=== PATIENT | female | born 1955 | race Caucasian/White ===

== ENCOUNTER 2017-02-16 14:09 | Emergency (ER) | payer OTHER ==
[~2017-02-16] VITALS: Ht 154.9 cm; Wt 59.0 kg
[2017-02-16] MEDS ORDERED: BACTRIM DS TAB1 EACH PO (14:35)
[2017-02-16] MEDS ORDERED: PROBIOTIC1 EAC1 PO (14:35)
[2017-02-16 14:48] VITALS: BP 106/66
== END 2017-02-16 14:49 | disposition home or self-care (01) ==
LOC: ER 14:09
DX: L03.011 Cellulitis of right finger (principal)

== ENCOUNTER 2017-06-08 11:07 | Emergency (ER) | payer OTHER ==
[~2017-06-08] VITALS: Ht 152.4 cm; Wt 56.7 kg
[~2017-06-08 11:07] MED LIST: BACTRIM DS TAB1 EACH PO; PROBIOTIC1 EAC1 PO
[2017-06-08 12:22] LABS: HEMATOCRIT 43.3 % (37.0-47.0)
[2017-06-08 12:22] LABS: URINE BILIRUBIN NEGATIVE (Negative); URINE BLOOD TRACE (Negative); URINE CLARITY CLEAR; URINE COLOR YELLOW; URINE GLUCOSE-RANDOM* NEGATIVE (Negative); URINE KETONES NEGATIVE (Negative); URINE LEUKOCYTES 1+ (Negative); URINE NITRITE NEGATIVE (Negative); URINE PROTEIN (DIPSTICK) NEGATIVE (Negative); URINE SPECIFIC GRAVITY >= 1.030 (1.005-1.035); URINE UROBILINOGEN 0.2 E.U./dl (0.2-1.0)
[2017-06-08 12:24] LABS: HEMOGLOBIN 14.9 gm/dL (12.0-15.0); MCH 34.8 pg (26.0-34.0); MCHC 34.4 g/dL (28.0-37.0); MCV 101.3 fL (80.0-100.0); PLATELET COUNT 155 thou/uL (150-400); RBC 4.27 mil/uL (4.20-5.00); RDW 14.1 % (10.5-14.5); WBC 2.1 thou/uL (4.0-11.0)
[2017-06-08 12:39] LABS: CALCIUM 9.2 mg/dL (8.5-10.1); CREATININE 0.9 mg/dL (0.6-1.0); POTASSIUM 3.7 mmol/L (3.5-5.1)
[2017-06-08 12:42] LABS: ALBUMIN 3.2 g/dL (3.4-5.0); TOTAL BILIRUBIN 0.3 mg/dL (<0.1-1.0); TOTAL PROTEIN 6.7 g/dL (6.4-8.2)
[2017-06-08 12:58] LABS: SQUAMOUS 0-3 Few /LPF (0-3); URINE RBC 3-10 Few /HPF (0-2)
[2017-06-08 12:59] LABS: BACTERIA 1-9 Few /HPF (None Seen); CASTS None Seen /LPF (None Seen); CRYSTALS None Seen /LPF (None Seen)
[2017-06-08 13:00] LABS: ABSOLUTE NEUTROPHILS 0.9 thou/uL (1.4-8.2)
[2017-06-08 13:01] LABS: ANISOCYTOSIS SLIGHT
[2017-06-08] MEDS ORDERED: KEFLEX500 M2 PO (14:20)
[2017-06-08] MEDS ORDERED: ZANAFLEX2 MG PO (14:20)
== END 2017-06-08 15:22 | disposition home or self-care (01) ==
LOC: ER 11:07
PROVIDERS: Emergency Medicine
DX: M43.6 Torticollis (principal); N39.0 Urinary tract infection, site not specified

== ENCOUNTER 2018-01-13 10:22 | Emergency (ER) | payer OTHER ==
[~2018-01-13] VITALS: Ht 154.9 cm; Wt 57.1 kg
[~2018-01-13 10:22] MED LIST changes: +KEFLEX500 M2 PO; +ZANAFLEX2 MG PO
[2018-01-13] MEDS ORDERED: NORCO 5-325 TA1 EACH PO (12:27)
[2018-01-13] MEDS ORDERED: WHEELCHAIR1 EACH MC (12:32)
[2018-01-13 12:56] VITALS: BP 108/77
== END 2018-01-13 13:04 | disposition home or self-care (01) ==
LOC: ER 10:22
DX: S82.002A Unspecified fracture of left patella, initial encounter for closed fracture (principal); W07.XXXA Fall from chair, initial encounter; Y93.89 Activity, other specified; Y92.89 Other specified places as the place of occurrence of the external cause; Y99.8 Other external cause status